=== PATIENT | male | born 1995 | race Caucasian/White ===

== ENCOUNTER 2017-01-31 21:31 | Emergency (ER) | payer BC ==
[2017-01-31] MEDS ORDERED: LORazepam 2 MG/ML MDV IVPUSH ONE (21:42)
[2017-01-31] MEDS ORDERED: Sodium Chloride 0.9% 10 ML Syringe FLUSH PRN (21:43)
[2017-01-31] MEDS ORDERED: Sodium Chloride 0.9% 1,000 ML IV ONE (21:44)
[2017-01-31 21:48] VITALS: BP 157/123
[2017-01-31] MEDS ORDERED: Ondansetron 4 MG/2 ML SDV IVPUSH ONE (21:49)
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
[2017-01-31 22:05] LABS: ACETAMINOPHEN 0 ug/mL (10-30)
[2017-01-31] MEDS ORDERED: Haloperidol Lactate 5 MG/ML SDV IVPUSH ONE ×2 (22:06→22:10)
[2017-01-31] MEDS ORDERED: Sodium Chloride 0.9% 1,000 ML IV SCH (23:15)
[2017-02-01] MEDS ORDERED: Sodium Chloride 0.9% 1,000 ML IV SCH (01:30)
--- NOTE | 2017-02-02 11:59 | CR ---
Chest: Frontal view of the chest was obtained. Comparison: No previous study. Heart size and mediastinum are normal. Lungs are clear. Bony structures are grossly intact. Impression: 1. Nothing acute is identified on frontal chest x-ray. Diagnostic code #1
== END 2017-02-01 02:55 | disposition home or self-care (01) ==
LOC: JD.ED 21:31
DX: F10.120 Alcohol abuse with intoxication, uncomplicated (principal); Z88.0 Allergy status to penicillin; Z91.030 Bee allergy status; Y90.0 Blood alcohol level of less than 20 mg/100 ml
CPT/HCPCS: 36415; 71010; 80053; 80306; 84484; 85025; 86140; 93005; 96361; 96374; 96375; 99284; G0480; J1630; J2060; J2405; J7040; J7050